=== PATIENT | male | born 1945 | race Caucasian/White ===

== ENCOUNTER 2022-02-04 12:33 | Emergency (ER) | payer MEDICARE, SELFPAY ==
--- NOTE | ~2022-02-04 | CT_ITS ---
EXAMINATION: CT abdomen pelvis w con DATE: 02/04/2022 15:38 INDICATION: Rectal pain, constipation TECHNIQUE: Computed tomography (CT) of the abdomen and pelvis was performed with 100 CC Omnipaque 300 intravenous contrast. Automated exposure control and iterative reconstruction technique were employe d. Exam dose: 495.33 mGy-cm total exam DLP. COMPARISON: 06/27/2008 CT abdomen FINDINGS: The lung bases are clear. Normal heart size. No pericardial or pleural effusion. The liver, gallbladder, bile ducts, pancreas, pancreatic duct and spleen are unremarkable other than occasional hepatic and splenic calcified granulomas consistent with old granulomatous disease. Normal morphology of the adrenal glands. No renal mass lesion is detected. Prominent renal artery calcifications. Mild nonspecific perinephric stranding. No urinary tract calculus or hydroureteronephrosis is detected. There is extensive calcification of the abdominal aorta, celiac, superior mesenteric, renal arteries, inferior mesenteric artery in addition to the iliac and femoral arteries. No abdominal aortic aneury sm. There are some shoddy nonenlarged periaortic and aortocaval lymph nodes. Bilateral vas deferens calcifications, usually associated with diabetes. There is prostate enlargemen t and calcification. The urinary bladder appears unremarkable. There is a rectal fecal impaction and a prominent of fecal material throughout most of the colon, con sistent with clinical presentation of constipation. Otherwise no bowel obstruction or any intraperito herb free air is noted. No abscess cavity is detected. Normal appendix. Diffuse osteopenia. No suspicious osteolytic or osteoblastic lesions are noted. Is moderate degenerat sammi disc disease at L4-5 and moderately severe degenerative disease at L5-S1. IMPRESSION: Rectal fecal impaction, prominent amount of fecal material in the colon, consistent with clinical presentation of constipation No bowel obstruction or free air Normal appendix Nonspecific mild bilateral perinephric stranding Extensive arterial calcification of the abdominal aorta, celiac, superior mesenteric, inferior mesent ifrah, renal, iliac and femoral arteries; no abdominal aortic aneurysm Bilateral vas deferens calcifications, usually associated with diabetes Prostate enlargement and calcification Reviewed, dictated and finalized at [facility]. Reviewed, dictated and finalized at [facility]. IMPRESSION: Rectal fecal impaction, prominent amount of fecal material in the colon, consistent with clinical presentation of constipation No bowel obstruction or free air Normal appendix Nonspecific mild bilateral perinephric stranding Extensive arterial calcification of the abdominal aorta, celiac, superior mesen teric, inferior mesenteric, renal, iliac and femoral arteries; no abdominal aor tic aneurysm Bilateral vas deferens calcifications, usually associated with diabetes Prostate enlargement and calcification
[2022-02-04 13:46] VITALS: BP 141/57; PULSE 84; RESP 18; TEMP 36.5; O2SAT 100
[2022-02-04 14:37] LABS: Basophils Absolute Auto 0.03 K/mm3 (0.00-0.10); Basophils Percent Auto 0.2 % (0.0-1.0); Eosinophils Absolute Auto 0.01 K/mm3 (0.02-0.50); Eosinophils Percent Auto 0.1 % (1.0-6.0); Hematocrit 35.1 % (37.0-46.0); Hemoglobin 11.8 g/dL (12.4-15.3); Immature Granulocyte Absolute 0.11 K/mm3 (0.00-0.00); Immature Granulocyte Percent A 0.7 % (0.0-0.0); Lymphocytes Absolute Auto 0.56 K/mm3 (1.10-4.50); Lymphocytes Percent Auto 3.8 % (18.0-42.0); Mean Corpuscular HGB Conc 33.6 g/dL (32.0-36.0); Mean Corpuscular Hemoglobin 30.9 pg (27.0-31.0); Mean Corpuscular Volume 91.9 fL (78.0-102.0); Mean Platelet Volume 11.3 fl (8.7-11.0); Monocytes Percent Auto 4.7 % (2.0-11.0); Neutrophils Absolute Auto 13.4 K/mm3 (1.7-7.2); Neutrophils Percent Auto 90.5 % (50.0-70.0); Platelet Count Result 142 K/mm3 (150-420); Red Blood Count 3.82 M/mm3 (4.70-6.10); Red Cell Distribution Width 14.9 % (11.6-14.4); White Blood Count 14.8 K/mm3 (4.8-10.8)
[2022-02-04 14:52] LABS: Alanine Aminotransferase 10 U/L (16-63); Albumin Level 3.7 g/dL (3.4-5.0); Alkaline Phosphatase 179 U/L (46-116); Anion Gap 10 mmol/L (8-16); Aspartate Amino Transferase 18 U/L (15-37); Bilirubin,Total 0.7 mg/dL (0.00-1.00); Blood Urea Nitrogen 20 mg/dL (7-18); Calcium 8.8 mg/dL (8.5-10.1); Carbon Dioxide 24 mmol/L (21-32); Chloride 104 mmol/L (98-108); Estimated CRCL calculation 39 ml/min; Estimated Glomerular Filt Rate 45; Glucose 107 mg/dL (70-99); Lipase 127 U/L (73-393); Osmolality Calculated 288 mOsm/kg (285-295); Potassium 3.7 mmol/L (3.5-5.1); Sodium 138 mmol/L (136-145)
[2022-02-04] MEDS: SODIUM CHLORIDE 0.9% IV 500 ML 999 ML IV CONT (15:10)
[2022-02-04] MEDS: PANTOPRAZOLE SODIUM IV 40 MG VIAL IV PUSH (15:10)
[2022-02-04] MEDS: ONDANSETRON INJ 4 MG/2 ML VIAL IV PUSH (15:20)
--- NOTE | 2022-02-04 17:07 | ED.GIBLEED ---
HPI - GI Bleed General Chief complaint: GI Bleed Stated complaint: Bleeding rectum Time Seen by Provider: 02/04/22 12:37 Source: patient and RN notes reviewed Mode of arrival: ambulatory History of Present Illness complaint: blood on toilet paper Onset (ago): day(s) (1) Pain Consistency: other (mild rectal pain) Severity: mild Relieving factors: bowel movement Exacerbating factors: bowel movement Context: hemorrhoids Associated symptoms: denies other symptoms Related Data Home Medications Medication Instructions Recorded Confirmed amlodipine 10 mg tablet 10 mg PO BID 02/04/22 02/04/22 atorvastatin 80 mg tablet 80 mg PO BID 02/04/22 02/04/22 celecoxib 200 mg capsule 200 mg PO DAILY 02/04/22 02/04/22 clonidine HCl 0.1 mg tablet 0.1 mg PO TID 02/04/22 02/04/22 clopidogrel 75 mg tablet 75 mg PO DAILY 02/04/22 02/04/22 finasteride 5 mg tablet 5 mg PO DAILY 02/04/22 02/04/22 metformin 500 mg tablet 500 mg PO BID 02/04/22 02/04/22 Allergies Allergy/AdvReac Type Severity Reaction Status Date / Time No Known Allergies AdvReac Mild Unverified 02/04/22 13:55 Review of Systems Review of Systems: All systems reviewed & are unremarkable except as noted in HPI and below Constitutional: Constitutional: Reports no additional constitutional complaints Eyes: Eyes: Reports no additional eye complaints ENT: Reports system reviewed and no additional complaints, except as documented Cardiovascular: Cardiovascular: Reports no additional cardiovascular complaints Respiratory: Respiratory: Reports no additional respiratory complaints Gastrointestinal: Gastrointestinal: Reports no additional gastrointestinal complaints Musculoskeletal: Musculoskeletal: Reports no additional musculoskeletal complaints Integumentary/Breasts: Skin/Breast: Reports system reviewed and no additional complaints, except as docu Neurologic: Reports system reviewed and no additional complaints, except as documented Psychiatric: Psychiatric: Reports no additional psychiatric complaints Endocrine: Endocrine: Reports no additional endocrine complaints Hematologic/Lymphatic: Hematologic/Lymphatic: Reports no additional hematologic/lymphatic complaints Allergic/Immunologic: Allergic/Immunologic: Reports no additional allergic/immunologic complaints [facility] Past Medical History Medical History (Updated 02/26/22 @ 13:29 by Roma Kumari MD) Anal fissure Family History Family History (Updated 10/03/12 @ 14:37 by DOCTOR UNKNOWN) Other Carcinoma of colon Family history of lung cancer Family history of malignant neoplasm of male breast Social History Social History Alcohol intake: current Exam Const: General: healthy appearing and no acute distress Nutritional Appearance: well nourished Orientation/consciousness: patient oriented x3 Limitations: no limitations HENMT: Head: normal to inspection Ears: external ears normal, TM's normal bilaterally and EAC's normal General nose exam: Normal external nose present and Normal nares present Face and sinus: normal facial exam and sinuses nontender Mouth: Yes Normal oral and palatal mucosa present and Yes moist mucous membranes Teeth and gingiva: dentition normal Throat: posterior oropharynx normal Eyes: Conjunctivae: conjunctivae normal Pupils: Equal, round and reactive pupils present EOM: EOMs intact bilaterally Neck: Neck: normal visual inspection, no lymphadenopathy and no meningeal signs Chest: Chest palpation & inspection: normal inspection of the chest Resp: Effort & Inspection: normal respiratory effort Auscultation: clear to auscultation bilaterally Cardio: Rate: regular rate Rhythm: regular rhythm GI: GI Palp: Yes Soft to palpation and No Tenderness to palpation present (GI) Auscultation: normal bowel sounds Rectal Exam: fecal impaction Other: no acute rectal heme : General: Yes bladder normal to palpation and Yes no CVA tenderness Back/Spine/Pelvis: Ba
[2022-02-04 17:30] LABS: Add Urine Microscopic? NO; Appearance Urine Clear (Clear); Bilirubin Urine Negative (Negative); Blood Urine Negative (Negative); Color Urine Yellow (Yellow); Glucose Urine UA Negative (Negative); Ketones Urine Negative (Negative); Leukocyte Esterase Ur Negative (Negative); Nitrate Urine Negative (Negative); Protein Urine Negative (Negative)
[2022-02-04 17:40] LABS: Occult Blood Positive (Negative)
--- NOTE | 2022-02-04 17:45 | PC.NURSE ---
rectal check for occult stool specimen obtain. large amount of balls of hard stool in rectal cavity . rectum/periarea excoriation noted bright red.
--- NOTE | 2022-02-04 17:48 | PC.NURSE ---
pt sitting up on commode. caregiver in room with pt.
[2022-02-04 18:15] VITALS: BP 124/78; PULSE 72; RESP 18; TEMP 36.4; O2SAT 94
== END 2022-02-04 18:30 | disposition home or self-care (01) ==
PROVIDERS: Emergency Provider Emergency Medicine; PCP Physician Assistant
DX: K60.2 Anal fissure, unspecified (principal); K59.00 Constipation, unspecified
CPT/HCPCS: 36415; 74177; 80053; 81003; 82272; 83690; 85025; 87040; 96361; 96365; 96375; 99284; C9113; J0696; J2405; J7040; Q9967

== ENCOUNTER 2022-07-13 11:40 | Outpatient (CLI) | payer MEDICARE, SELFPAY ==
--- NOTE | ~2022-07-13 | XR_ITS ---
EXAMINATION: XR chest 2V Exam Date/Time: 07/13/2022 12:00 CDT HISTORY: persistent cough/chronic cough Comparison: None available. RESULT: Lines, tubes, and devices: None. Lungs and pleura: Ill-defined right medial basal opacity with obscuration of the right heart border. Cardiomediastinal silhouette: Stable. Other: No acute osseous or upper abdominal finding. Severe osteoporosis. IMPRESSION: Right middle lobe opacity may reflect atelectasis or pneumonia. Reviewed, dictated and finalized at [facility].
== END 2022-07-13 11:41 | disposition home or self-care (01) ==
LOC: CHSIMG 11:46
PROVIDERS: PCP Physician Assistant; Visit Provider Physician Assistant
DX: R05.3 Chronic cough (principal)
CPT/HCPCS: 71046

== ENCOUNTER 2022-09-12 13:49 | Emergency (ER) | payer MEDICARE, SELFPAY ==
[2022-09-12] VITALS (26 sets, daily range): BP systolic 110–150; BP diastolic 51–83; PULSE 65–69; RESP 16; TEMP 36.8–37.2; O2SAT 98–100
--- NOTE | ~2022-09-12 | CT_ITS ---
EXAMINATION: CT brain wo con DATE: 09/12/2022 16:35 INDICATION: Confusion. Altered mental state. Agitation. TECHNIQUE: Computed tomography (CT) of the head was performed without intravenous contrast. The mA wa s adjusted according to patient size. Iterative reconstruction technique was employed. Exam dose: 68 1.00 mGy-cm total exam DLP. COMPARISON: None FINDINGS: There is prominent calcification of the carotid siphon and supraclinoid internal carotid ar teries as well as some vertebral artery calcification. There is nonspecific diminished attenuation of the cerebral white matter, likely due to chronic small vessel ischemic change. There is a focal chronic infarct of the high right parietal convexity. Chronic lacunar infarct of the head of the left caudate nucleus. No intracranial mass lesion or hemorrhage or recent cerebrovascular accident is detected. No midline shift or mass effect. Central and cortical cerebral atrophy.. No subdural or epidural hematoma. No fracture or bone destruction of the cranial vault. Included paranasal sinuses and mastoid air cells are unremarkable. 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 Reviewed, dictated and finalized at [facility]. 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
--- NOTE | 2022-09-12 14:02 | ED.AMS ---
HPI - Altered Mental Status General Chief Complaint: Altered Mental Status Stated Complaint: ambulance Time Seen by Provider: 09/12/22 14:02 Source: patient, family, EMS and RN notes reviewed Mode of arrival: EMS Limitations: no limitations History of Present Illness HPI narrative: patient brought in by EMS for some increased confusion. Family states he is not been himself . Originally they thought maybe he was having some stroke symptoms because he had a stroke several years ago with some mild resultant diminished strength on the left side. He is not having any new weakness. On arrival he is completely alert and interactive which is an improvement according to EMS. Family said he sat on the toilet for 2 hours and could not get up. Patient states that he was sitting on the toilet trying to go to the bathroom for 2 hours but he denies any problem getting off the toilet he denies any change in his strength. He said he did not lacked the ability to get off the toilet. He does not remember some of the confusion is at work past few days. But at this point he appears alert interactive. complaint: altered mental status Onset (ago): day(s) (3) Timing confirmed by: family member Severity: moderate Consistency of symptoms: waxing and waning Related Data Home Medications Medication Instructions Recorded Confirmed amlodipine 10 mg tablet 10 mg PO BID 02/04/22 02/04/22 atorvastatin 80 mg tablet 80 mg PO BID 02/04/22 02/04/22 celecoxib 200 mg capsule 200 mg PO DAILY 02/04/22 02/04/22 clonidine HCl 0.1 mg tablet 0.1 mg PO TID 02/04/22 02/04/22 clopidogrel 75 mg tablet 75 mg PO DAILY 02/04/22 02/04/22 finasteride 5 mg tablet 5 mg PO DAILY 02/04/22 02/04/22 metformin 500 mg tablet 500 mg PO BID 02/04/22 02/04/22 Allergies Allergy/AdvReac Type Severity Reaction Status Date / Time No Known Allergies AdvReac Mild Verified 09/12/22 14:01 Review of Systems Review of Systems: All systems reviewed & are unremarkable except as noted in HPI and below PMFSH Past Medical History Medical History (Updated 09/12/22 @ 17:32 by Fabiano Oliver MD) Anal fissure CVA (cerebral vascular accident) Hyperlipidemia Hypertension Type 2 diabetes mellitus Family History Family History (Updated 10/03/12 @ 14:37 by DOCTOR UNKNOWN) Other Carcinoma of colon Family history of lung cancer Family history of malignant neoplasm of male breast Social History Social History Alcohol intake: current Exam Const: General: healthy appearing, no acute distress and alert Nutritional Appearance: well nourished Orientation/consciousness: oriented to person, oriented to place and oriented to time Limitations: no limitations HENMT: Head: normal to inspection Ears: external ears normal Face/Nose/Sinus: Normal external nose present Face and sinus: normal facial exam Mouth: Yes moist mucous membranes Eyes: Conjunctivae: conjunctivae normal Pupils: Equal, round and reactive pupils present EOM: EOMs intact bilaterally Neck: Neck: normal visual inspection Resp: Effort & Inspection: normal respiratory effort Auscultation: clear to auscultation bilaterally Cardio: Rate: regular rate Rhythm: regular rhythm GI: GI Palp: Yes Soft to palpation and No Tenderness to palpation present (GI) Auscultation: normal bowel sounds : General: Yes bladder normal to palpation Back/Spine/Pelvis: Cervical Spine: cervical ROM normal Thoracic/Lumbar Spine: thoraco-lumbar ROM normal Skin: General skin exam: normal color Rashes: no rashes Neuro: General: patient oriented x3, moves all extremities, no focal motor deficits and CN's II-XI intact bilaterally Speech: normal speech Gait exam (Neuro): Normal gait present Course Course Emergency Course: patient is alert and oriented for us here. His altered mental status seems to have completely resolved. He denies any significant pain. He originally he states that he could not urinate on command so we
[2022-09-12 14:21] LABS: Basophils Absolute Auto 0.05 K/mm3 (0.00-0.10); Basophils Percent Auto 1.1 % (0.0-1.0); Eosinophils Absolute Auto 0.11 K/mm3 (0.02-0.50); Eosinophils Percent Auto 2.5 % (1.0-6.0); Hematocrit 26.3 % (37.0-46.0); Hemoglobin 9.1 g/dL (12.4-15.3); Immature Granulocyte Absolute 0.02 K/mm3 (0.00-0.00); Immature Granulocyte Percent A 0.5 % (0.0-0.0); Lymphocytes Absolute Auto 0.67 K/mm3 (1.10-4.50); Lymphocytes Percent Auto 15.3 % (18.0-42.0); Mean Corpuscular HGB Conc 34.6 g/dL (32.0-36.0); Mean Corpuscular Hemoglobin 31.7 pg (27.0-31.0); Mean Corpuscular Volume 91.6 fL (78.0-102.0); Mean Platelet Volume 11.2 fl (8.7-11.0); Monocytes Absolute Auto 0.49 K/mm3 (0.10-0.90); Monocytes Percent Auto 11.2 % (2.0-11.0); Neutrophils Percent Auto 69.4 % (50.0-70.0); Platelet Count Result 120 K/mm3 (150-420); Red Blood Count 2.87 M/mm3 (4.70-6.10); Red Cell Distribution Width 15.9 % (11.6-14.4); White Blood Count 4.4 K/mm3 (4.8-10.8)
[2022-09-12 14:39] LABS: Alanine Aminotransferase 13 U/L (16-63); Albumin Level 2.7 g/dL (3.4-5.0); Alkaline Phosphatase 111 U/L (46-116); Anion Gap 6 mmol/L (8-16); Aspartate Amino Transferase 15 U/L (15-37); Bilirubin,Total 0.5 mg/dL (0.00-1.00); Blood Urea Nitrogen 14 mg/dL (7-18); CRP 0.8 mg/dL (0.0-0.9); Carbon Dioxide 27 mmol/L (21-32); Chloride 105 mmol/L (98-108); Estimated CRCL calculation 50 ml/min; Estimated Glomerular Filt Rate > 60; Glucose 116 mg/dL (70-99); Magnesium 1.6 mg/dL (1.8-2.4); Osmolality Calculated 287 mOsm/kg (285-295); Potassium 3.9 mmol/L (3.5-5.1); Sodium 138 mmol/L (136-145); Total Protein 5.5 g/dL (6.4-8.2)
[2022-09-12 15:14] LABS: Add Urine Microscopic? NO; Appearance Urine Clear (Clear); Bilirubin Urine Negative (Negative); Blood Urine Negative (Negative); Color Urine Light Yellow (Yellow); Glucose Urine UA Negative (Negative); Ketones Urine Negative (Negative); Leukocyte Esterase Ur Negative LEU/UL (Negative); Nitrate Urine Negative (Negative); Protein Urine Negative (Negative); Urobilinogen Urine 0.2 mg/dL (0.2-1.0)
[2022-09-12 15:47] LABS: SARS-CoV-2 RNA PCR Negative (Negative)
--- NOTE | 2022-09-12 16:24 | PC.NURSE ---
Pt off floor to CT scan.
--- NOTE | 2022-09-12 16:45 | PC.NURSE ---
ePtra from social studies department chair to come and speak with patient's daughter. Daughter has concerns about patient living alone, daughter lives in [place] and is scheduled to fly home tomorrow.
--- NOTE | 2022-09-12 17:24 | PCCCNOTE ---
Spoke to pt and his daughter Donny. Donny states pt is not able to stay by himself any longer, he does not remember to take his meds correctly and unable to provide the personal care he needs. She has been with him the last 2 weeks trying to set up care in the home with [facility] but they can not administer medications. Donny requests assistance with penitentiary placement. Gave her and pt list of nursing homes in area that accept [facility] insurance. PASRR completed no Level II needed and gave daughter copy of report. Encouraged daughter to call nursing homes in morning and ask for placement. Gave daughter phone number for [facility] to get help with DON score.
== END 2022-09-12 17:40 | disposition home or self-care (01) ==
PROVIDERS: Emergency Provider Emergency Medicine; PCP Physician Assistant
DX: R40.4 Transient alteration of awareness (principal); E78.5 Hyperlipidemia, unspecified; I10 Essential (primary) hypertension; Z86.73 Personal history of transient ischemic attack (TIA), and cerebral infarction without residual deficits; Z20.822 Contact with and (suspected) exposure to COVID-19
CPT/HCPCS: 36415; 51701; 70450; 80053; 81003; 83735; 85025; 86140; 99284; U0003; U0005